=== PATIENT | female | born 2000 | race African-American/Black ===

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

== ENCOUNTER 2021-10-14 10:02 | Emergency (ER) | payer OTHER ==
[2021-10-14 11:08] LABS: Bilirubin Neg (Negative); Blood, Urine 10 (Negative); Clarity Clear (Clear); Glucose, Urine (Dipstick) Normal (Negative); Ketone, Urine Negative (Negative); Leukocyte 100 (Negative); Nitrite Negative (Negative); Protein, Urine (Dipstick) Negative (Neg-Trace); Specific Gravity, Urine 1.015 (1.002-1.036); Urobilinogen Normal mg/dL (Less than 2)
[2021-10-14 11:17] LABS: Bacteria/HPF 3+ HPF (None Seen); RBC/HPF 0-3 HPF (0-3); Squamous Epithelial 0-3 HPF (0-3)
[2021-10-14 11:20] LABS: #Eosinphils 0.2 10x3/uL (0.0-0.5); #Monocytes 0.8 10x3/uL (0.0-1.1); #Neutrophils 2.9 10x3/uL (1.5-8.4); %Basophils 0.5 % (0.0-2.0); %Eosinophils 3.3 % (0.0-6.0); %Lymphocytes 34.8 % (18.0-47.0); %Monocytes 12.5 % (0.0-10.0); %Neutrophils 48.6 % (40.0-75.0); Hemoglobin 6.8 g/dL (12.0-15.5); Mean Corpuscular HGB CONC 27.8 g/dL (32.0-36.0); Mean Corpuscular Hemoglobin 18.6 pg (27.0-33.0); Mean Corpuscular Volume 66.9 fl (81.6-98.3); Mean Platelet Volume 9.7 fl (7.4-10.4); Platelet Count 279 10x3/uL (150-450); Red Blood Cell (RBC) Count 3.66 10x6/uL (3.90-5.03)
[2021-10-14 12:16] LABS: Hypochromia SLIGHT = 6-15 cells (100X) (0-5/hpf); Microcytosis SLIGHT = 6-15 cells (100X) (0-5/hpf); Ovalocytes SLIGHT = 2-5 cells (100X) (0-1/hpf)
[2021-10-14 12:17] LABS: Platelet Morphology Comment Appears Adequate
== END 2021-10-14 12:01 | disposition home or self-care (01) ==
LOC: CSHERS 10:02
DX: O99.011 Anemia complicating pregnancy, first trimester (principal); O23.41 Unspecified infection of urinary tract in pregnancy, first trimester; O26.851 Spotting complicating pregnancy, first trimester; Z3A.01 Less than 8 weeks gestation of pregnancy
CPT/HCPCS: 76856; 81003; 81015; 84702; 85025; 86900; 86901

== ENCOUNTER 2023-01-13 14:57 | Inpatient (IN) | payer OTHER ==
[2023-01-13] MEDS ORDERED: Tranexamic Acid 1,000 MG/10 ML VIAL IVP PRN (16:11)
[2023-01-13] MEDS ORDERED: Butorphanol Tartrate 1 MG/ML VIAL SLOW IVP PRN (16:11)
[2023-01-13] MEDS ORDERED: Ibuprofen 800 MG TAB PO PRN (16:11)
[2023-01-13] MEDS ORDERED: Carboprost 250 MCG/ML AMP IM PRN (16:11)
[2023-01-13] MEDS ORDERED: HYDROcodone/Acetaminophen 5/325 mg Tablet PO PRN ×2 (16:11→23:41)
[2023-01-13] MEDS ORDERED: Diphenoxylate HCl/Atropine Tablet PO PRN (16:11)
[2023-01-13] MEDS ORDERED: Promethazine HCl 25 MG/ML VIAL IM PRN (16:11)
[2023-01-13] MEDS ORDERED: Acetaminophen 500 MG TAB PO PRN (16:11)
[2023-01-13] MEDS ORDERED: Methylergonovine 0.2 MG/ML VIAL IM PRN (16:11)
[2023-01-13] MEDS ORDERED: hydrALAZINE 20 MG/ML VIAL SLOW IVP PRN ×2 (16:11→23:41)
[2023-01-13] MEDS ORDERED: Misoprostol 200 MCG TAB PR PRN (16:11)
[2023-01-13] MEDS ORDERED: Lidocaine 1% (PF) 30 ML VIAL SC PRN (16:11)
[2023-01-13] MEDS ORDERED: Ondansetron PF 4 MG/2 ML Vial IVP PRN ×2 (16:11→23:41)
[2023-01-13] MEDS ORDERED: Lactated Ringer's 1,000 ML IV SCH (16:15)
[2023-01-13] MEDS ORDERED: NS w/ Oxytocin 30 units 500 ML IV SCH ×3 (16:15)
[2023-01-13] MEDS ORDERED: fentaNYL 50 mcg/mL 1 mL Vial SLOW IVP PRN (16:22)
[2023-01-13] MEDS ORDERED: Fentanyl 2 mcg/Bup 0.1% Cadd 100 ML ONE (16:31)
[2023-01-13 16:34] LABS: Mean Corpuscular HGB CONC 30.8 g/dL (32.0-36.0); Mean Corpuscular Hemoglobin 23.1 pg (27.0-33.0); Mean Corpuscular Volume 74.9 fl (81.6-98.3); Mean Platelet Volume 10.8 fl (7.4-10.4); Platelet Count 239 10x3/uL (150-450); RBC Distribution Width 15.5 % (11.5-14.5)
[2023-01-13 17:12] LABS: HBSAg Index 0.19 S/CO (0-0.99); Hep B Surf Ag - L&D Non-Reactive S/CO (NonReactive)
[2023-01-13 17:13] LABS: Syphilis Antibody Nonreactive (Nonreactive); Syphilis Antibody Index 0.07 S/CO (<1.00 Non-Reactive)
[2023-01-13 17:23] VITALS: BMI 30.4
[2023-01-13] MEDS ORDERED: Bupivacaine 0.25% HCL 30 ML VIAL ONE (18:00)
[2023-01-13 18:24] LABS: Amphetamine Not Detected (NotDetected); Barbiturates Screen Not Detected (NotDetected); Benzodiazepine Screen Not Detected (NotDetected); Cocaine Metabolite Screen Not Detected (NotDetected); Methadone Not Detected (NotDetected); Methamphetamine Not Detected (NotDetected); Opiate Screen Not Detected (NotDetected); Oxycodone Screen Not Detected (NotDetected); Phencyclidine (PCP) Not Detected (NotDetected); THC/Cannabinoid Screen Detected (NotDetected); Tricyclic Screen Not Detected (NotDetected)
[2023-01-13] MEDS ORDERED: Lanolin Ointment 7 GM TUBE TOP PRN (23:41)
[2023-01-13] MEDS ORDERED: Bisacodyl 10 MG SUPP PR PRN (23:41)
[2023-01-13] MEDS ORDERED: Benzocaine-Menthol 82.5 ML CAN TOP PRN (23:41)
[2023-01-13] MEDS ORDERED: Boostrix 0.5 ML (Tdap) VIAL (>/=7 yrs of age) IM ONE (23:41)
[2023-01-13] MEDS ORDERED: diphenhydrAMINE 25 MG CAP PO PRN (23:41)
[2023-01-13] MEDS ORDERED: Milk Of Magnesia 30 ML UDCUP PO PRN (23:41)
[2023-01-13] MEDS ORDERED: Ibuprofen 800 MG TAB PO SCH (23:45)
[2023-01-13] MEDS ORDERED: Docusate 100 MG CAP PO SCH (23:45)
[2023-01-14] MEDS: Prenatal Vitamin 1 TAB PO SCH (08:45)
[2023-01-14] MEDS: Ferrous Sulfate 325 MG TAB PO SCH ×2 (08:45→17:51)
[2023-01-14] MEDS: Docusate 100 MG CAP PO SCH ×2 (11:34→20:34)
[2023-01-14] MEDS: Ibuprofen 800 MG TAB PO SCH ×3 (14:08→21:42)
[2023-01-15] MEDS: Ibuprofen 800 MG TAB PO SCH (05:24)
[2023-01-15 08:31] VITALS: BP 96/57; TEMP 98.1
[2023-01-15] MEDS: Prenatal Vitamin 1 TAB PO SCH (09:23)
[2023-01-15] MEDS: Docusate 100 MG CAP PO SCH (09:23)
[2023-01-15] MEDS: Ferrous Sulfate 325 MG TAB PO SCH (09:23)
== END 2023-01-15 12:40 | disposition home or self-care (01) | DRG 807 ==
LOC: CSHLD/OP 14:57 → CSHLD 15:29 → CSHPP 01-14 11:25
PROVIDERS: ADMIT Family Medicine; ATTEND Family Medicine
PROC: 10E0XZZ Delivery of Products of Conception, External Approach (ICD-10-PCS; principal; 2023-01-13)
PROC: 10907ZC Drainage of Amniotic Fluid, Therapeutic from Products of Conception, Via Natural or Artificial Opening (ICD-10-PCS; 2023-01-13)
DX: O77.0 Labor and delivery complicated by meconium in amniotic fluid (principal); Z37.0 Single live birth; O69.81X0 Labor and delivery complicated by cord around neck, without compression, not applicable or unspecified; Z3A.40 40 weeks gestation of pregnancy
CPT/HCPCS: 51702; 80306; 85027; 86780; 86850; 86900; 86901; 87340; 99285; S0020